=== PATIENT | female | born 1980 | race Caucasian/White ===

== ENCOUNTER 2021-10-12 17:20 | Emergency (ER) | payer BC ==
[~2021-10-12] VITALS: Ht 167.6 cm; Wt 63.6 kg
[2021-10-12] MEDS ORDERED: normal saline 1000ML IV soln IVB ONE (18:05)
[2021-10-12] MEDS ORDERED: ondansetron/PF 4mg/2ml inj IV ONE (18:05)
[2021-10-12 18:52] LABS: BASOPHILS % (AUTO) 0.1 % (0-1); EOSINOPHILS % (AUTO) 0 % (0-6); HEMATOCRIT 46.7 % (35.0-45.0); HEMOGLOBIN 15.5 g/dl (12.0-16.0); LYMPHOCYTES # (AUTO) 0.9 X10'3 (1.1-4.8); LYMPHOCYTES % (AUTO) 6.4 % (21-51); MEAN CORPUSCULAR HEMOGLOBIN 32.2 PG (27.0-31.0); MEAN CORPUSCULAR HGB CONC 33.2 g/dL (33.0-36.5); MEAN CORPUSCULAR VOLUME 96.9 FL (78-98); MEAN PLATELET VOLUME 8.1 FL (7.4-10.4); MONOCYTES # (AUTO) 0.7 X10'3 (0-0.9); MONOCYTES % (AUTO) 4.6 % (2-12); NEUTROPHILS # (AUTO) 12.6 X10'3 (1.8-7.7); NEUTROPHILS % (AUTO) 88.9 % (42-75); PLATELET COUNT 392 X10'3 (140-440); RED BLOOD COUNT 4.82 X10'6 (4.20-5.60); RED CELL DISTRIBUTION WIDTH 16.1 % (11.5-14.5); WHITE BLOOD COUNT 14.2 X10'3 (4.5-11.0)
[2021-10-12 19:04] LABS: ALANINE AMINOTRANSFERASE 45 U/L (12-78); ALBUMIN 5.4 G/DL (3.4-5.0); ALBUMIN/GLOBULIN RATIO 1.5 (1.1-1.5); ALKALINE PHOSPHATASE 116 IU/L (46-116); ANION GAP 27 (8-16); ASPARTATE AMINO TRANSFERASE 50 U/L (10-37); BILIRUBIN,TOTAL 0.8 MG/DL (0.1-1.0); BLOOD UREA NITROGEN 13 MG/DL (7-18); BUN/CREATININE RATIO 12.1 (6.6-38.0); CALCIUM 10.2 MG/DL (8.5-10.1); CHLORIDE 95 MMOL/L (99-107); CREATININE 1.07 MG/DL (0.40-0.90); GLUCOSE 135 MG/DL (70-104); POTASSIUM 4.8 MMOL/L (3.5-5.1); SODIUM 134 MMOL/L (135-145); TOTAL PROTEIN 9.1 G/DL (6.4-8.2); eGFR 57 ML/MIN
[2021-10-12 19:10] LABS: TOTAL CARBON DIOXIDE 11.9 MMOL/L (24-32)
[2021-10-12] MEDS ORDERED: ibuprofen tablet 400 MG TABLET PO ONE (19:55)
[2021-10-12 20:54] LABS: URINE HCG NEGATIVE (NEG)
[2021-10-12 20:55] LABS: CLARITY,URINE CLEAR (Clear); COLOR,URINE YELLOW (Yellow); GLUCOSE, URINE NEGATIVE (Neg); KETONES,URINE >=80 mg/dl (Neg); LEUKOCYTE ESTERASE ,URINE NEGATIVE (Neg); NITRITES, URINE NEGATIVE (Neg); OCCULT BLOOD,URINE MODERATE (Neg); PH,URINE 5.5 (4.8-8.0); PROTEIN,URINE 100 mg/dl (Neg); UROBILINOGEN,URINE 0.2 E.U/dL (0.2-1.0)
[2021-10-12 20:58] LABS: UA COLLECTION TYPE CLN CATCH MIDSTREAM
[2021-10-12 21:07] LABS: BACTERIA,URINE FEW /HPF (Neg); MUCUS STRANDS FEW /LPF (Neg); SQUAMOUS EPITHELIAL CELL,UR FEW /LPF (FEW); WBC,URINE 0-4 /HPF (0-4)
[2021-10-12] MEDS ORDERED: proCHLORperazine 10 MG/2 ml inj IV ONE (22:00)
[2021-10-12 22:27] VITALS: BP 143/83
[2021-10-12] MEDS ORDERED: ONDA8TAB13 PO (22:32)
== END 2021-10-12 23:28 | disposition home or self-care (01) ==
LOC: ER 17:22
DX: R11.2 Nausea with vomiting, unspecified (principal); E86.0 Dehydration; D72.829 Elevated white blood cell count, unspecified; R10.84 Generalized abdominal pain; R51.9 Headache, unspecified; Z79.899 Other long term (current) drug therapy
CPT/HCPCS: 36415; 71045; 80053; 81001; 81025; 83605; 83735; 84145; 85025; 87040; 93005; 96361; 96374; 96375; 99285; J0780; J2405; J7030

== ENCOUNTER 2021-11-16 18:51 | Emergency (ER) | payer OTHER, BC ==
[~2021-11-16] VITALS: Ht 167.6 cm; Wt 63.6 kg
[~2021-11-16 18:51] MED LIST: ONDA8TAB13 PO
[2021-11-16] MEDS ORDERED: SERT-433 PO (20:03)
[2021-11-16] MEDS ORDERED: PROP20TA6 PO (20:03)
[2021-11-16] MEDS ORDERED: NALT50TA PO (20:03)
[2021-11-16] MEDS ORDERED: acetaminophen 325mg tablet PO ONE (20:30)
[2021-11-16] MEDS ORDERED: ketorolac tromethamine 15mg/ml inj. IM ONE (20:30)
[2021-11-16 23:23] VITALS: BP 134/76
== END 2021-11-16 23:25 | disposition home or self-care (01) ==
LOC: ER 18:52
DX: R51.9 Headache, unspecified (principal); M79.604 Pain in right leg; M79.605 Pain in left leg; Z79.899 Other long term (current) drug therapy
CPT/HCPCS: 70486; 96372; 99284; J1885